=== PATIENT | female | born 1980 | race Caucasian/White ===

== ENCOUNTER 2017-03-17 18:20 | Emergency (ER) | payer OTHER ==
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
[2017-03-17] MEDS ORDERED: SILVER SULFADIAZINE 50 APPL JAR TP ONE ×2 (19:49→19:51)
[2017-03-17 20:03] VITALS: BP 122/85
== END 2017-03-17 20:00 | disposition home or self-care (01) ==
LOC: ER 18:20
DX: T22.251A Burn of second degree of right shoulder, initial encounter (principal); T31.0 Burns involving less than 10% of body surface; T79.9XXA Unspecified early complication of trauma, initial encounter; X13.1XXA Other contact with steam and other hot vapors, initial encounter; Y93.9 Activity, unspecified; Y92.009 Unspecified place in unspecified non-institutional (private) residence as the place of occurrence of the external cause; Y99.9 Unspecified external cause status; F17.200 Nicotine dependence, unspecified, uncomplicated